=== PATIENT | female | born 1955 | race Caucasian/White ===

== ENCOUNTER 2022-02-21 05:58 | Observation (INO) | payer MEDICARE ==
--- NOTE | 2022-02-19 09:02 | RAD REPORT ---
EXAM DESCRIPTION: RAD - Chest Pa And Lat (2 Views) - 02/19/2022 8:55 am CLINICAL HISTORY: pre op for surgery COMPARISON: Two view chest 10/06/2009 TECHNIQUE: Frontal and lateral views of the chest were obtained. FINDINGS: The lungs are clear. Interstitial pattern within normal range and not substantially diffe rent from the comparison. No mass or lymphadenopathy at either hilum. Heart size is normal and central vasculature is within normal limits. No pleural effusion or pneumothorax seen. No acute aortic abnormality. Since the prior study there has been placement of a right shoulder prosthesis. Right shoulder is only partially imaged. There are degenerative changes at the left shoulder joint with joint space narrowi ng and significant marginal spurring of the humeral head and bony glenoid. IMPRESSION: No acute cardiopulmonary process.
[2022-02-19 09:06] LABS: SARS-CoV-2 Antigen Rapid Res Negative (Negative)
[2022-02-19 09:06] LABS: Absolute Lymphocytes (CBC) 1.1 K/uL (0.7-4.9); Hematocrit 43.3 % (36.0-45.0); Lymphocytes % 22.2 % (15.3-44.8); MCV 89.4 fL (80-100); MPV 9.5 fL (7.6-11.3); RBC Red Blood Cell Count 4.84 M/uL (3.86-4.86)
[2022-02-19 09:10] LABS: Protime INR 0.92
[2022-02-19 09:53] LABS: Potassium 4.3 mmol/L (3.5-5.1)
[2022-02-19 10:37] LABS: Blood Morphology Comment NOT SEEN (NOT SEEN); Platelet Estimate ADEQ; Platelets, Giant 2+; White Blood Cell Scan OK (OK)
--- NOTE | 2022-02-19 14:35 | EKG ---
Test Date: 2022-02-19 Test Time: 08:19:24 Network Architect Manager: RODY MEASUREMENT RESULTS: Intervals: Rate: 62 [place]: 146 QRSD: 86 QT: 402 QTc: 408 [place]: P: 40 [place]: 146 QRS: 17 T: 33 INTERPRETIVE STATEMENTS: Normal sinus rhythm Normal ECG Compared to ECG 06/20/1998 11:32:00 T-wave abnormality no longer present Electronically Signed On 02-19-22 14:33:44 ROLL CHANGER by Jacques Warren
[2022-02-21] MEDS ORDERED: Ringers Lactate 1,000 ML IV ONE ×2 (06:20→10:11)
[2022-02-21] MEDS ORDERED: CEFAZOLIN SODIUM 2 GM/VIAL ONE (06:20)
[2022-02-21] MEDS ORDERED: FENTANYL CITR 100 MCG/2 ML ONE (07:40)
[2022-02-21] MEDS ORDERED: MIDAZOLAM HCL 2 MG/2 ML INJ ONE (07:40)
[2022-02-21] MEDS ORDERED: EPINEPHRINE/PF 1 MG/ML AMP ONE (08:15)
[2022-02-21] MEDS ORDERED: LIDOCAINE 1% MPF 5 ML VIAL ONE (08:15)
[2022-02-21] MEDS ORDERED: dexAMETHasone 10 MG/ML VIAL ONE ×2 (08:15→08:16)
[2022-02-21] MEDS ORDERED: ROPLVACAINE HCL 40 ML ONE (08:15)
[2022-02-21] MEDS ORDERED: ROCURONIUM 50 MG/5 ML VIAL IV ONE (08:16)
[2022-02-21] MEDS ORDERED: KETOROLAC 30 MG/ML INJ ONE (08:16)
[2022-02-21] MEDS ORDERED: LIDOCAINE 2% MPF 5 ML VIAL ONE (08:16)
[2022-02-21] MEDS ORDERED: propofoL 200 MG/20 ML VIAL IV ONE (08:16)
[2022-02-21] MEDS ORDERED: ONDANSETRON 4 MG/2 ML VIAL ONE (08:17)
[2022-02-21] MEDS ORDERED: NS 0.9% VIAL 10 ML ONE ×3 (09:03→10:37)
[2022-02-21] MEDS ORDERED: VECURONIUM 10 MG/VIAL IV ONE (09:41)
--- NOTE | 2022-02-21 12:31 | P.BOP ---
Preoperative diagnosis: left shoulder rotator cuff arthopathy Postoperative diagnosis: same Primary procedure: left reverse shoulder arthroplasty Retail Sales Associate Seasonal: NONE,NONE Estimated blood loss: 200 Specimen: left shoulder bone remnants Findings: see dictation Anesthesia: General Complications: None Implants: Biomet Twila small aug base plate 36 glenosphere,36 poly w standard tray Fluids & blood products: per anesthesia record Transferred to: Recovery Room Condition: Good
[2022-02-21] MEDS ORDERED: ACETAMINOPHEN 325 MG TABLET PO PRN (12:32)
[2022-02-21] MEDS ORDERED: MORPHINE 2 MG/ML SYR IV PRN (12:32)
[2022-02-21] MEDS ORDERED: ONDANSETRON 4 MG/2 ML VIAL IV PRN (12:32)
[2022-02-21] MEDS ORDERED: DOCUSATE NA 100 MG CAP PO PRN (12:32)
[2022-02-21] MEDS ORDERED: TRAMADOL HCL 50 MG TAB PO PRN (12:32)
--- NOTE | 2022-02-21 13:19 | RAD REPORT ---
EXAM DESCRIPTION: RAD - Shoulder 1 View - 02/21/2022 1:13 pm CLINICAL HISTORY: postop COMPARISON: Shoulder Left Wo Cont dated 01/03/2022 FINDINGS/IMPRESSION: Interval left shoulder arthroplasty. No evidence of immediate hardware complica tions. The arthroplasty appears located.
[2022-02-21 13:46] VITALS: BMI 28.8
[2022-02-21] MEDS ORDERED: INFLUENZA VACCINE (for 6+ mo) 0.5 ML DOSE IMVAC ONE (16:00)
[2022-02-21] MEDS: CEFAZOLIN SODIUM 2 GM in NA CHLORIDE 0.9% 100 ML IVPB SCH (17:10)
[2022-02-21] MEDS ORDERED: ATORVASTATIN 10 MG TAB PO SCH (21:00)
[2022-02-21 21:14] VITALS: O2SAT 95
[2022-02-22] MEDS: CEFAZOLIN SODIUM 2 GM in NA CHLORIDE 0.9% 100 ML IVPB SCH ×2 (00:07→06:12)
[2022-02-22] MEDS: HYDROCODONE/APAP 7.5/325 MG TAB PO PRN ×3 (00:53→10:46)
[2022-02-22 05:08] LABS: Hematocrit 33.5 % (36.0-45.0)
[2022-02-22] MEDS ORDERED: LEVOTHYROXINE SOD 0.112 MG TAB PO SCH (06:30)
[2022-02-22] MEDS ORDERED: LEVOTHYROXINE SOD 0.025 MG TAB PO SCH (06:30)
[2022-02-22] MEDS ORDERED: HOME MED 1 EA UNK (Pravastatin Sodium [Pravastatin Sodium] 40 MG Tablet) PO SCH (09:00)
[2022-02-22] MEDS ORDERED: HOME MED 1 EA UNK (Omeprazole [Prilosec] 40 MG Capsule.Dr) PO SCH (09:00)
[2022-02-22] MEDS ORDERED: HOME MED 1 EA UNK (Levothyroxine Sodium [Levothyroxine] 137 MCG Capsule) PO SCH (09:00)
[2022-02-22] MEDS ORDERED: MAGNESIUM CHLORIDE 64 MG TAB PO SCH (09:00)
[2022-02-22] MEDS ORDERED: FLUOXETINE 20 MG CAP PO SCH (09:00)
[2022-02-22] MEDS ORDERED: HOME MED 1 EA UNK (Potassium Citrate [Potassium] 99 MG Capsule) PO SCH (09:00)
[2022-02-22] MEDS ORDERED: PANTOPRAZOLE 40MG TABLET PO SCH (09:00)
[2022-02-22 09:08] VITALS: BP 135/65; TEMP 98.1
--- NOTE | 2022-02-22 11:22 | P.DS ---
Admission Date: 02/21/22 Discharge Date: 02/22/22 Disposition: ROUTINE DISCHARGE Discharge Condition: GOOD Reason for Admission: s/p left reverse shoulder arthroplasty Consultations: none Procedures: left reverse shoulder arthroplasty 02/21/2022 Brief History of Present Illness: Gloria underwent left reverse shoulder arthroplasty on February 21, 2022 without complication. She was admitted to floor in stable condition. Hospital Course: Patient was admitted to the floor postoperatively without complication. She mobilized with physical therapy safely. She was discharged in stable condition on February 22, 2022. She will follow-up in 1 week for wound check. Vital Signs/Physical Exam: Temp Pulse Resp BP Pulse Ox 98.1 F 65 18 135/65 97 02/22/22 08:00 02/22/22 08:00 02/22/22 08:00 02/22/22 08:00 02/22/22 08:00 Laboratory Data at Discharge: WBC 4.90 K/uL (4.3-10.9) 02/19/22 08:35 Hgb 11.3 g/dL (12.0-15.0) L D 02/22/22 04:13 Hct 33.5 % (36.0-45.0) L 02/22/22 04:13 Plt Count 195 K/uL (152-406) 02/19/22 08:35 PT 10.1 SECONDS (9.5-12.5) 02/19/22 08:35 INR 0.92 02/19/22 08:35 APTT 28.6 SECONDS (24.3-36.9) 02/19/22 08:35 Sodium 139 mmol/L (136-145) 02/19/22 08:35 Potassium 4.3 mmol/L (3.5-5.1) 02/19/22 08:35 BUN 16 mg/dL (7-18) 02/19/22 08:35 Creatinine 0.95 mg/dL (0.55-1.02) 02/19/22 08:35 Glucose 99 mg/dL (74-106) 02/19/22 08:35 Home Medications: Fluoxetine HCl [Prozac] 1 tab PO DAILY 02/19/22 Levothyroxine Sodium [Levothyroxine] 1 tab PO DAILY 02/19/22 Magnesium Chloride [Magnesium] 1 tab PO DAILY 02/19/22 [place]-3/Dha/Epa/Fish Oil [Fish Oil 1,000 mg Softgel] 1 tab PO DAILY 02/19/22 Omeprazole [Prilosec] 1 tab PO DAILY 02/19/22 Potassium Citrate [Potassium] 1 tab PO DAILY 02/19/22 Pravastatin Sodium 1 tab PO DAILY 02/19/22 Vitamin D [Drisdol*] 1 tab PO DAILY 02/19/22 Hydrocodone 7.5/APAP 325 [[place] 7.5/325 mg*] 1 tab PO Q4H PRN tab 02/22/22 Physician Discharge Instructions: keep dressing c/d/i; keep in shoulder immobilizer Diet: Regular Activity: Non-weight bearing (LUE) Followup: Scooby Ferrer MD [Primary Care Provider] - John Clemons MD [ACTIVE - CAN ADMIT] -
--- NOTE | 2022-02-22 20:06 | P.OP ---
Preoperative diagnosis: left shoulder rotator cuff arthropathy Postoperative diagnosis: same Primary procedure: left reverse shoulder arthroplasty Anesthesia: general Estimated blood loss: 200 cc Specimen: left shoulder bone remnants Findings: see dictation Operative Technique: Indication For Procedure: Gloria is a 66-year-old female, who presented to my clinic with signs, symptoms, and MRI findings consistent with left shoulder rotator cuff arthropathy. The patient failed conservative treatment measures including corticosteroid injections, as well as physical therapy. She had significant pain that interfere with her day-to-day activities.. I discussed with the patient at length risks and benefits associated with operative and nonoperative treatment. She expressed understanding and elected to proceed with operative treatment. Description Of Procedure: After informed consent was obtained, the patient was identified in the preoperative holding area. The left upper extremity was marked. The patient was brought back to the recovery room where the patient underwent an interscalene block to her left upper extremity performed by Anesthesia. She was then brought back to the operating room, transferred to the operating table in supine fashion, placed under general endotracheal anesthesia. She was then placed in the beach chair position with extremities well-padded. The left upper extremity was then prepped and draped in usual sterile fashion. A time-out was initiated. The correct patient and procedure were confirmed and identified. The patient did receive her preoperative prophylactic antibiotics. Approximately a 15 cm incision was made within the deltopectoral interval just proximal to the coracoid process to the level of the humeral shaft. Dissection was then taken down to the deltopectoral fascia. The cephalic vein was identified and dissected and retracted gently laterally. Any bleeding branches were electrocauterized using Bovie. Once the interval was created, self- retaining retractors then placed. The coracobrachialis was identified and gently retracted along its lateral border and retracted out of the way. The superior 25% of the pectoralis major insertion was then elevated off the proximal humerus using Bovie electrocautery. The 3 sisters were identified and they were tied off using silk ties and transected at the base of the subscapularis insert. Just medial to the lesser tuberosity, a subscapularis tenotomy was performed and subscapularis was tagged using #5 Ethibond along the superior to inferior borders and was then elevated with the capsule. Any synovial fluid was then irrigated and cleared out using suction. The anterior capsule was then elevated off the glenoid and elevated up anteriorly to approximately 6 o'clock position using Bovie electrocautery, staying directly on bone to prevent any trauma to the axillary nerve and axillary nerve that was identified and was away from the dissection at all times. The capsule was then excised off the humeral neck. Osteophytes were then removed off the inferior border of the humeral head and neck using rongeurs. The shoulder was externally rotated and the shoulder was dislocated. First attention was taken to the proximal humerus. A canal finder was then placed down the proximal humerus in an antegrade fashion followed by reamers to a size 12 mm reamer head had overall good fit. The cutting guide was then placed over the top of the reamer in line for placement of 30 mm mini stem with an approximately 30 degrees of retroversion, put in the humeral head cut was then made just to the superior border of the greater tuberosity. The bone was then removed and sent to Pathology. Next, the proximal humerus was then broached starting with an 8 mm broach to size 12 mm. There was good overall fit. Batman-David retractors were then used after the proximal humerus was prepared. Next, attention was taken to the glenoid. Batman-David retractors were placed. The labrum was excised and there was good overall exposure. Preoperative surgical planning using a CT scan was used to create the patient's specific instruments. The glenoid guide was then placed over the anterior aspect of the glenoid. There was good overall fit. Pins were then placed. Next, the guide was then removed and then next attention was taken to placing the mini baseplate. A drill was then placed over the center pin to the appropriate depth. It was found in the inferior to center position on the glenoid to prevent scapular notching. A mini baseplate was selected. There was some elevation of the baseplate superiorly with incomplete contact, so a small augment was selected. The glenoid was then prepared for a small augment. There was then good contact throughout the baseplate. After the augment was selected and the mini baseplate was then put into position. The center screw was then placed followed by 4 locking screws around the perimeter. A size 36 mm glenosphere was then placed. There was good overall bite with all the screws and there was good fixation of the base plating glenosphere. Next a size 36 mm tray was then placed on the proximal humerus trial. The shoulder was reduced. There was good overall flexion, abduction as well as internal and external rotation. The wound was then irrigated again thoroughly with normal saline. The final humeral implants were placed using a 12 mm mini stem and a 36 standard tray for size 36 standard bearing. The shoulder was then reduced. The shoulder was tested for stability. There was no anterior- posterior stability. There was good overall range of motion. The wound was then irrigated thoroughly with normal saline. Prior to placement of the humeral stem, the proximal humerus was drilled for passage of Ethibond sutures for repair of the subscapularis. The subscapularis was repaired in a horizontal mattress type fashion. Next, the fracture was then removed. The shoulder was again irrigated thoroughly with normal saline. The fascia was approximated using 0 Vicryl. Subcutaneous tissue was approximated using a 2-0 Vicryl. Skin was approximated using gage. Sterile dressings were applied. The patient was placed in a shoulder immobilizer, awakened, and transferred to PACU in stable condition. Postoperative Plan: The patient will be admitted to the floor postoperatively for pain control. She will follow up in my clinic in 1 week for wound check. Complications: None Implants: Biomet 36 mm glenosphere mini baseplate small augment, 36 poly std tray Fluids & blood products: per anesthesia record Transferred to: Recovery Room Condition: Good
== END 2022-02-22 12:16 | disposition home or self-care (01) ==
LOC: OR 05:58 → 4TH 12:32
PROVIDERS: ADMIT Orthopaedic Surgery Sports Medicine; ATTEND Orthopaedic Surgery Sports Medicine
PROC: 0RRK0JZ Replacement of Left Shoulder Joint with Synthetic Substitute, Open Approach (ICD-10-PCS; principal; 2022-02-21 08:30)
DX: M19.012 Primary osteoarthritis, left shoulder (principal); M25.512 Pain in left shoulder; Z20.822 Contact with and (suspected) exposure to COVID-19
CPT/HCPCS: 93005; 85025; 80048; 36415 ×2; 85610; 88305; 88311; 85730; 85018 ×2; 85014 ×2; 71046; 73020; 94010; 87811; 23472; G0379; J2704; J0171; J2001 ×2; J2250; J3010; J1100 ×2; J2795; A4216 ×3; J7120 ×2; J2405; G0378 ×2